=== PATIENT | male | born 1960 | race Caucasian/White ===

== ENCOUNTER 2024-08-20 01:16 | Observation (INO) | payer OTHER ==
[2024-08-20] MEDS ORDERED: Ketorolac Tromethamine 30 MG (1 mL) VIAL ONE (02:25)
[2024-08-20] MEDS ORDERED: Aspirin Chewable 81 MG TAB ONE (02:25)
[2024-08-20 02:50] LABS: Troponin I Less than 0.010 ng/mL (< 0.028)
[2024-08-20] MEDS ORDERED: Dextrose 5% in Water 1,000 ML IV PRN (03:43)
[2024-08-20] MEDS ORDERED: Insulin Lispro 100 UNIT/ML 10 ML VIAL SC PRN ×2 (03:43)
[2024-08-20] MEDS ORDERED: Ondansetron ODT 4 MG TAB PO PRN (03:43)
[2024-08-20] MEDS ORDERED: Glucagon 1 MG/ML KIT IM PRN (03:43)
[2024-08-20] MEDS ORDERED: Ondansetron PF 4 MG/2 ML Vial IVP PRN (03:43)
[2024-08-20] MEDS ORDERED: Dextrose 50% Abboject 50 ML SYRINGE SLOW IVP PRN (03:43)
[2024-08-20] MEDS ORDERED: Acetaminophen 325 MG TAB PO PRN (03:43)
[2024-08-20] MEDS: Aspirin Chewable 81 MG TAB PO SCH (07:18)
[2024-08-20 07:25] LABS: #Basophils 0.05 10x3/uL (0.0-0.2); %Basophils 0.7 % (0.0-1.0); %Eosinophils 1.4 % (0.0-10.0); %Lymphocytes 16.3 % (21.0-51.0); %Monocytes 6.4 % (0.0-10.0); %Neutrophils 75.1 % (42.0-75.0); Hematocrit 38.1 % (42.0-52.0); Hemoglobin 12.9 g/dL (14.0-18.0); Mean Corpuscular HGB CONC 33.9 g/dL (32.0-36.0); Mean Corpuscular Hemoglobin 31.2 pg (27.0-31.0); Mean Platelet Volume 9.9 fL (7.4-10.4); Platelet Count 267 10x3/uL (130-400); RBC Distribution Width 13.1 % (11.5-14.5); Red Blood Cell (RBC) Count 4.14 mill/uL (4.70-6.10)
[2024-08-20 07:42] LABS: Anion Gap 14 mmol/L (10-20); BUN (Urea Nitrogen) 9 mg/dL (8.4-25.7); Calc. Creatinine Clearance 122 mL/min (70-130); Calcium 9.3 mg/dL (7.8-10.44); Carbon Dioxide 23 mmol/L (23-31); Cardiac Risk 2.2 (Less than 4.5); Chloride 103 mmol/L (98-107); Cholesterol 118 mg/dl (< 200 Desired); Estimated GFR 102; Glucose 137 mg/dL (80-115); HDL Cholesterol 53 mg/dL (>60 Neg Risk); LDL Cholesterol, Calculated 54 mg/dL; Potassium 4.3 mmol/L (3.5-5.1); Sodium 136 mmol/L (136-145); Triglycerides 54 mg/dL (Less than 150)
[2024-08-20 07:43] LABS: Troponin I Less than 0.010 ng/mL (< 0.028)
[2024-08-20 07:50] LABS: Hemoglobin A1c 5.6 % (4.0-6.0)
[2024-08-20] MEDS ORDERED: Regadenoson 0.4 MG/5 ML SYRINGE ONE (12:04)
[2024-08-20] MEDS: Sodium Chloride 0.9% 1,000 ML IV SCH (13:42)
[2024-08-20 15:20] VITALS: BMI 25.4
[2024-08-20 16:17] VITALS: BP 163/77; TEMP 97.3
[2024-08-20 16:37] LABS: Troponin I Less than 0.010 ng/mL (< 0.028)
[2024-08-20] MEDS ORDERED: traMADol HCl 50 MG TAB PO PRN (17:09)
[2024-08-20] MEDS ORDERED: Pregabalin 75 MG CAP PO SCH (21:00)
[2024-08-21] MEDS ORDERED: Pantoprazole DR 40 MG TAB PO SCH (08:00)
[2024-08-21] MEDS ORDERED: metFORMIN 500 MG TAB PO SCH ×2 (08:00→17:00)
[2024-08-21] MEDS ORDERED: Rosuvastatin 10 MG TAB PO SCH (09:00)
[2024-08-21] MEDS ORDERED: Lisinopril 20 MG TAB PO SCH (09:00)
[2024-08-21] MEDS ORDERED: Allopurinol 300 MG TAB PO SCH (09:00)
[2024-08-22] MEDS ORDERED: FLU (Fluarix Triv) TS24-25(6MOS UP)/PF 45 MCG/0.5 ML Syringe IM ONE (09:00)
== END 2024-08-20 18:18 | disposition home or self-care (01) ==
LOC: ERS 01:16 → ERHOLD 03:32 → OBS 14:55
PROVIDERS: ADMIT Internal Medicine; ATTEND Internal Medicine
DX: R07.9 Chest pain, unspecified (principal); I10 Essential (primary) hypertension; E78.5 Hyperlipidemia, unspecified; E11.9 Type 2 diabetes mellitus without complications; Z90.49 Acquired absence of other specified parts of digestive tract; Z87.891 Personal history of nicotine dependence; Z79.84 Long term (current) use of oral hypoglycemic drugs; Z79.899 Other long term (current) drug therapy
CPT/HCPCS: 78452; 80048; 80061; 82962; 83036; 84484 ×2; 85025; 93005; 93017; 96374; 99285; A9502; G0378 ×2; J1885; J2785 ×2; J7030; 36415; 36416